=== PATIENT | female | born 1960 | race African-American/Black ===

== ENCOUNTER 2020-07-11 17:56 | Emergency (ER) | payer BC ==
[~2020-07-11] VITALS: Ht 175.3 cm; Wt 100.0 kg
[2020-07-11] MEDS ORDERED: IBUPROFEN 400 MG TABLET. PO ONE (18:30)
--- NOTE | 2020-07-11 18:35 | PHYS DOC ---
Adult General Chief Complaint Chief Complaint: [facility] H[facility] Patient is a 59 year old female who denies any significant past medical history now presenting emergency department left-sided knee pain after a fall. Patient states that she was walking [place] when she tripped on a small area over the ground that was elevated. States that she fell onto her left side and struck her left knee. Noted abrasion over the left knee and was having some difficulty moving it. Denies any head injury, loss of conscious, neck pain, chest abdomen or back pain. Review of Systems Review of Systems Constitutional: Denies fever or chills [] Eyes: Denies change in visual acuity, redness, or eye pain [] HENT: Denies nasal congestion or sore throat [] Respiratory: Denies cough or shortness of breath [] Cardiovascular: No additional information not addressed in HPI [] GI: Denies abdominal pain, nausea, vomiting, bloody stools or diarrhea [] : Denies dysuria or hematuria [] Musculoskeletal: Denies back pain or joint pain [] Integument: Denies rash or skin lesions [] Neurologic: Denies headache, focal weakness or sensory changes [] Endocrine: Denies polyuria or polydipsia [] All other systems were reviewed and found to be within normal limits, except as documented in this note. Current Medications Current Medications Current Medications Medications (Trade) Dose Ordered Sig/[place] Start Time Stop Time Status Last Admin Dose Admin Ibuprofen (Motrin) 800 mg 1X ONCE 07/11/20 18:30 07/11/20 18:37 DC 07/11/20 18:48 800 MG Allergies Allergies Allergies Coded Allergies Type Severity Reaction Last Updated Verified No Known Drug Allergies 07/11/20 No Physical Exam Physical Exam Constitutional: Well developed, well nourished, no acute distress, non-toxic appearance. [] HENT: Normocephalic, atraumatic, bilateral external ears normal, oropharynx moist, no oral exudates, nose normal. [] Eyes: PERRLA, EOMI, conjunctiva normal, no discharge. [] Neck: Normal range of motion, no tenderness, supple, no stridor. [] Cardiovascular:Heart rate regular rhythm, no murmur [] Lungs & Thorax: Bilateral breath sounds clear to auscultation [] Abdomen: Bowel sounds normal, soft, no tenderness, no masses, no pulsatile masses. [] Skin: Warm, dry, no erythema, no rash. [] Back: No tenderness, no CVA tenderness. [] Extremities: Small left knee abrasion with mild tenderness, no cyanosis, no clubbing, ROM intact, no edema. [] Neurologic: Alert and oriented X 3, normal motor function, normal sensory function, no focal deficits noted. [] Psychologic: Affect normal, judgement normal, mood normal. [] Current Patient Data Vital Signs Vital Signs Date Time Temp Pulse Resp B/P (MAP) Pulse Ox O2 Delivery O2 Flow Rate FiO2 07/11/20 17:57 98.2 74 20 147/77 (100) 97 Room Air 98.2 EKG EKG [] Radiology/Procedures Radiology/Procedures [] Course & Med Decision Making Course & Med Decision Making Pertinent Labs and Imaging studies reviewed. (See chart for details) 59F with moderate left knee pain and abrasion after fall. Ria and anterior drawer signs are negative. Will obtain x-ray to make sure there is no underlying fracture and if negative feel the patient can be safely discharged home. X-ray demonstrates a high riding patella and what appears to be evidence of old injury. I talked to the patient again and she states that she thinks that she had a inferior patella tendon rupture many years ago and it was not repaired. Does have some significant swelling in the area but has been able to move the knee. At this time will place the patient in an immobilizer, give crutches and have the patient follow-up with orthopedic surgery. Dragon Disclaimer Dragon Disclaimer This electronic medical record was generated, in whole or in part, using a voice recognition dictation system. Departure Departure Impression: Primary Impression: Left knee injury Disposition: 01 DC HOME SELF CARE/HOMELESS Condition: GOOD Referrals: KATIE BARAHONA MD Patient Instructions: Patellar Dislocation Additional Instructions: EMERGENCY DEPARTMENT GENERAL DISCHARGE INSTRUCTIONS Thank you for coming to [facility] Emergency Department (ED) today and trusting us with you care. We trust that you had a positive experience in our Emergency Department. If you wish to speak to the department management, you may call the Director at [phone]. YOUR FOLLOW UP INSTRUCTIONS ARE FOLLOWS: 1. Do you have a private Doctor? If you do not have a private doctor, please a sk for a resource list of physicians or clinics that may be able to assist you with follow up care. 2. The Emergency Physicain has interpreted your x-rays. The X-Ray specialist will also review them. If there is a change in the findings, you will be notified in 48 hours when at all possible. 3. A lab test or culture has been done, your results will be reviewed and you will be notified if you need a change in treatment. ADDITIONAL INSTRUCTIONS AND INFORMATION: 1. Your care today has been supervised by a physician who is specially trained in emergency care. Many problems require more than one evaluation for a complete diagnosis and treatment. We recommend that you schedule your follow up appointment as recommended to ensure complete treatment of you illness or injury. If you are unable to obtain follow up care and continue to have a problem, or if your condition worsens, we recommend that you return to the ED. 2. We are not able to safely determine your condition over the phone nor are we able to give sound medical advice over the phone. For these safety reasons, if you call for medical advice we will ask you to come to the ED for further evaluation. 3. If you have any questions regarding these discharge instructions please call the ED at [phone]. SAFETY INFORMATION: In the interest of safety, wellness, and injury prevention; we encourage you to wear your sealbelt, if you smoke; quite smoking, and we encourage family to use a protective helmet for bicycling and other sporting events that present an increased risk for head injury. IF YOUR SYMPTOMS WORSEN OR NEW SYMPTOMS DEVELOP, OR YOU HAVE CONCERNS ABOUT YOUR CONDITION; OR IF YOUR CONDITION WORSENS WHILE YOU ARE WAITING FOR YOUR FOLLOW UP APPOINTMENT; EITHER CONTACT YOUR PRIMARY CARE DOCTOR, THE PHYSICIAN WHOSE NAME AND NUMBER YOU WERE GIVEN, OR RETURN TO THE ED IMMEDIATELY. CHERRIE LINK MD Jul 11, 2020 18:35
--- NOTE | 2020-07-11 19:08 | RAD ---
Exam: Left knee 3 views INDICATION: Fall TECHNIQUE: Frontal, lateral and oblique views left knee Comparisons: None FINDINGS: The patella is displaced superiorly. There is soft tissue irregularity at the expected area of the pa tellar tendon. Bone mineralization is normal. No acute fractures identified. Joint spaces are well-ma intained. IMPRESSION: Findings of patellar tendon rupture, with superior displacement of the patella. Electronically signed by: Carmen Gautam MD (07/11/2020 7:05 PM) [facility]
[2020-07-11 20:40] VITALS: BP 140/70
== END 2020-07-11 20:40 | disposition home or self-care (01) ==
LOC: EDBD 17:56 → ER 17:56
DX: S80.212A Abrasion, left knee, initial encounter (principal); W01.0XXA Fall on same level from slipping, tripping and stumbling without subsequent striking against object, initial encounter; Y93.89 Activity, other specified; Y92.89 Other specified places as the place of occurrence of the external cause; Y99.8 Other external cause status
CPT/HCPCS: 29505; 73562; 99283